=== PATIENT | male | born 1970 | race Two or more races ===

== ENCOUNTER → 2019-09-29 11:33 | Outpatient (CLI) | payer OTHER | END | disposition home or self-care (01) | LOC: LAB 11:33 | PROVIDERS: ATTEND General Practice | DX: R51 Headache (principal); Z12.5 Encounter for screening for malignant neoplasm of prostate; R39.11 Hesitancy of micturition; R35.1 Nocturia ==

== ENCOUNTER 2019-09-29 12:47 | Outpatient (CLI) | payer OTHER | END 2019-09-29 12:49 | disposition home or self-care (01) | LOC: TOM 12:47 | PROVIDERS: ATTEND General Practice | DX: I10 Essential (primary) hypertension (principal); F17.220 Nicotine dependence, chewing tobacco, uncomplicated; F17.200 Nicotine dependence, unspecified, uncomplicated ==

== ENCOUNTER → 2019-09-29 | Outpatient (CLI) | payer OTHER | END | disposition home or self-care (01) | LOC: LAB SALUS 09:19 | PROVIDERS: ATTEND General Practice | DX: Z13.220 Encounter for screening for lipoid disorders (principal); Z11.4 Encounter for screening for human immunodeficiency virus [HIV]; Z72.51 High risk heterosexual behavior; Z11.3 Encounter for screening for infections with a predominantly sexual mode of transmission; Z12.11 Encounter for screening for malignant neoplasm of colon ==